=== PATIENT | male | born 1975 | race Caucasian/White ===

== ENCOUNTER 2018-01-15 21:00 | Emergency (ER) | payer OTHER ==
[2018-01-15 21:28] VITALS: BP 159/78
[2018-01-15] MEDS ORDERED: Ketorolac INJ* 30 MG/ML 1 ML VIAL IM ONE (21:36)
[2018-01-15] MEDS ORDERED: Penicillin VK TAB* 250 MG PO ONE (21:37)
--- NOTE | 2018-01-15 21:39 | UC ---
[facility] HPI - HPI Summary HPI Summary: 42 YO MALE HAD DENTAL EXTRACTION 2 DAYS AGO NO RELIEF WITH NSAIDS LAST DOSE 3 PM NO F/C SWOLLEN FEELS A PIECE OF TOOTH WAS LEFT NO DM OR HEART MURMUR - History of Current Complaint Chief Complaint: UCDentalProblem Stated Complaint: PAIN S/P TOOTH EXTRACTION Time Seen by Provider: 01/15/18 21:29 Hx Obtained From: Patient Onset/Duration: Sudden Onset Severity: Severe Pain Intensity: 8 Pain Scale Used: 0-10 Numeric Aggravating Factor(s): Heat, Cold, Chewing Alleviating Factor(s): Nothing Related History: Swelling - Allergies/Home Medications Allergies/Adverse Reactions: Allergies Allergy/AdvReac Type Severity Reaction Status Date / Time No Known Allergies Allergy Verified 01/15/18 21:28 Home Medications: Home Medications Hydrochlorothiazide TAB* [Hydrodiuril TAB*] 25 mg PO DAILY 01/15/18 [History Confirmed 01/15/18] Omeprazole CAP* [Prilosec CAP* 20 MG] 20 mg PO DAILY 01/15/18 [History Confirmed 01/15/18] PMH/Surg Hx/FS Hx/Imm Hx Cardiovascular History: Hypertension - Surgical History Surgical History: Yes Surgery Procedure, Year, and Place: left knee - Family History Known Family History: Positive: Hypertension Negative: Respiratory Disease - Social History Alcohol Use: None Substance Use Type: None Smoking Status (MU): Light Every Day Tobacco Smoker Type: Cigarettes Amount Used/How Often: <1/2 ppd - Immunization History Most Recent Influenza Vaccination: none Review of Systems Constitutional: Negative Skin: Negative Eyes: Negative ENT: Dental Pain Respiratory: Negative Cardiovascular: Negative Gastrointestinal: Negative Genitourinary: Negative Motor: Negative Neurovascular: Negative Musculoskeletal: Negative Neurological: Negative Psychological: Negative Is Patient Immunocompromised?: No All Other Systems Reviewed And Are Negative: Yes Physical Exam Triage Information Reviewed: Yes Appearance: Well-Appearing, No Pain Distress, Well-Nourished Vital Signs: Initial Vital Signs Temp 98.6 F 01/15/18 21:23 Pulse 120 01/15/18 21:23 Resp 16 01/15/18 21:23 BP 159/78 01/15/18 21:23 Pulse Ox 96 01/15/18 21:23 Vital Signs Reviewed: Yes Eyes: Positive: Conjunctiva Clear ENT: Positive: Pharynx normal. Negative: Nasal congestion, Nasal drainage, Trismus, Muffled voice, Hoarse voice Neck: Positive: Supple, Nontender Respiratory: Positive: Lungs clear, Normal breath sounds, No respiratory distress, No accessory muscle use Cardiovascular: Positive: RRR, No Murmur, Tachycardia Musculoskeletal Exam: Normal Neurological Exam: Normal Dental Complaint Course/Dx - Differential Dx/Diagnosis Provider Diagnoses: ACUTE DENTAL PAIN POST EXTRACTION Discharge - Discharge Plan Condition: Stable Disposition: HOME Prescriptions: Penicillin VK 500 MG TAB(NF) [Penicillin VK 500 mg Tab] 500 mg PO QID #28 tab Patient Education Materials: Toothache (ED) Referrals: Elizabeth Phipps MD [Primary Care Provider] - Additional Instructions: CALL YOUR DENTIST IN AM TO DISCUSS MANAGEMENT AND FOLLOW UP DON'T TAKE MOTRIN OR NAPROSYN FOR UNTIL 6 HRS AFTER TORADOL SHOT YOU MAY TAKE TYLENOL TOO [facility] Dental: 1 - EMPTY SOCKET WITH FIBRONOUS COAT/SUM SWOLLEN
== END 2018-01-15 22:07 | disposition home or self-care (01) ==
LOC: UCCORT 21:00
DX: G89.18 Other acute postprocedural pain (principal); K08.409 Partial loss of teeth, unspecified cause, unspecified class; F17.210 Nicotine dependence, cigarettes, uncomplicated
CPT/HCPCS: 96372; 99212; A9270-GY; G0463; J1885